=== PATIENT | male | born 2000 | race Hispanic/Latino ===

== ENCOUNTER 2020-03-03 16:19 | Inpatient (IN) | payer SELFPAY ==
[~2020-03-03] VITALS: Ht 180.3 cm; Wt 114.2 kg
[2020-03-03] MEDS ORDERED: SODIUM CHLORIDE 0.9% 1000ML 2,000 ML IV ONE (16:44)
[2020-03-03 16:51] LABS: ABG OXYGEN SATURATION 63.6 % (95.0-99.0); BASE EXCESS,VENOUS BLOOD GAS -17.9 (-2.0-3.0); PCO2,VENOUS BLOOD GAS 26 (35-48); PH,VENOUS BLOOD GAS 7.159 (7.350-7.450)
[2020-03-03 17:11] LABS: APPEARANCE,URINE Clear (CLEAR); BASOPHILS % (AUTO) 0.5 % (0.0-5.0); BILIRUBIN,URINE Negative (NEGATIVE); COLOR,URINE Yellow (YELLOW); EOSINOPHILS % (AUTO) 0.1 % (0.0-8.0); GLUCOSE, URINE (UA) >=1000 mg/dL (NEGATIVE); HEMATOCRIT 50.8 % (42-54); KETONES,URINE >=160 mg/dL (NEGATIVE); LEUKOCYTE ESTERASE ,URINE Negative (NEGATIVE); LYMPHOCYTES % (AUTO) 15.8 % (21.0-51.0); MONOCYTES % (AUTO) 8.1 % (3.0-13.0); NITRATE,URINE Negative (NEGATIVE); OCCULT BLOOD,URINE Moderate (NEGATIVE); PLATELET COUNT (AUTO) 199 K/uL (130-400); PROTEIN,URINE POS 2+ mg/dL (NEGATIVE); RED BLOOD CELL COUNT(AUTO) 6.35 MIL/uL (4.50-6.20); RED CELL DISTRIBUTION WIDTH 13.8 % (11.0-15.5); UROBILINOGEN,URINE 0.2 mg/dL (0.2-1.0); WHITE BLOOD COUNT (AUTO) 11.4 K/uL (4.8-10.8)
[2020-03-03 17:19] LABS: AMPHET/METH SCREEN,URINE NEGATIVE (NEGATIVE); BARBITURATE SCREEN, URINE NEGATIVE (NEGATIVE); BENZODIAZEPINES SCREEN,URINE NEGATIVE (NEGATIVE); CANNABINOID SCREEN,URINE NEGATIVE (NEGATIVE); COCAINE SCREEN,URINE NEGATIVE (NEGATIVE); OPIATE SCREEN,URINE NEGATIVE (NEGATIVE); PHENCYCLIDINE SCREEN,URINE NEGATIVE (NEGATIVE)
[2020-03-03 17:20] LABS: BACTERIA,URINE Rare /HPF (None Seen); MUCUS,URINE Moderate LPF (None Seen); SQUAMOUS EPITHELIAL CELL,UR Few /HPF (0-2)
[2020-03-03 17:25] LABS: INR 0.93 (0.85-1.15); PARTIAL THROMBOPLASTIN TIME 26.7 SEC (26.3-35.5); PROTHROMBIN TIME 10.1 SEC (9.6-11.6)
[2020-03-03 17:41] LABS: ALBUMIN 4.6 g/dL (3.5-5.0); BILIRUBIN,TOTAL 1.1 mg/dL (0.2-1.0); CREATININE 1.4 mg/dL (0.5-1.5); TOTAL PROTEIN, SERUM 8.8 g/dL (6.0-8.3)
[2020-03-03 17:42] LABS: POTASSIUM 2.4 mmol/L (3.5-5.1)
[2020-03-03] MEDS ORDERED: POTASSIUM CHLORIDE 20MEQ/100ML 100 ML IV ONE ×2 (17:59→21:05)
[2020-03-03] MEDS ORDERED: POTASSIUM BICARB/CIT AC 25 MEQ TABLET.EFF ONE ×2 (17:59→21:04)
[2020-03-03] MEDS ORDERED: INSULIN REGULAR, HUMAN 3ML 100 UNIT in SODIUM CHLORIDE 0.9% 99 ML IV PRN ×2 (18:00)
[2020-03-03] MEDS ORDERED: ACETAMINOPHEN 325 MG TAB PO PRN ×2 (18:15)
[2020-03-03] MEDS ORDERED: ONDANSETRON HCL 4 MG/2 ML VIAL IV PRN (18:15)
[2020-03-03] MEDS ORDERED: DEXTROSE 5 %-0.45 % NACL 1,000 ML IV PRN (18:15)
[2020-03-03] MEDS: SODIUM CHLORIDE 0.9% 1000ML 1,000 ML IV SCH ×2 (18:15→23:15)
[2020-03-03] MEDS ORDERED: SODIUM CHLORIDE 0.9% 1000ML 1,000 ML IV SCH (18:15)
[2020-03-03 18:41] LABS: HEMOGLOBIN A1C 11.6 % (4.0-6.0)
[2020-03-03] MEDS ORDERED: LIDOCAINE HCL-MPF 1% 2ML VIAL ONE (20:03)
[2020-03-03] MEDS ORDERED: SODIUM CHLORIDE 0.9% 500ML 500 ML IV ONE (20:34)
[2020-03-03 20:59] LABS: POTASSIUM 2.8 mmol/L (3.5-5.1)
[2020-03-04] VITALS (8 sets, daily range): BP systolic 111–152; BP diastolic 61–85
[2020-03-04] MEDS ORDERED: SODIUM CHLORIDE 0.9% 1000ML 2,000 ML IV ONE (01:10)
[2020-03-04] MEDS ORDERED: SODIUM CHLORIDE 0.9% 500ML 500 ML IV ONE (01:10)
[2020-03-04 01:12] LABS: POTASSIUM 2.5 mmol/L (3.5-5.1)
[2020-03-04] MEDS ORDERED: POTASSIUM CHLORIDE 10MEQ/100ML 200 ML IV ONE ×2 (01:23→01:24)
[2020-03-04] MEDS ORDERED: LIDOCAINE HCL-MPF 1% 2ML VIAL ONE (01:24)
[2020-03-04] MEDS ORDERED: SODIUM CHLORIDE 0.9% 1000ML 1,000 ML IV ONE ×2 (02:06→05:21)
[2020-03-04] MEDS: SODIUM CHLORIDE 0.9% 1000ML 1,000 ML IV SCH ×4 (04:15→19:58)
[2020-03-04 05:24] LABS: HEMATOCRIT 42.2 % (42-54); MEAN CORPUSCULAR HEMOGLOBIN 28.4 pg (27.0-33.0); MEAN CORPUSCULAR HGB CONC 35.3 g/dL (32.0-36.0); MEAN CORPUSCULAR VOLUME 80.4 fL (80-100); RED BLOOD CELL COUNT(AUTO) 5.25 MIL/uL (4.50-6.20); RED CELL DISTRIBUTION WIDTH 13.9 % (11.0-15.5); WHITE BLOOD COUNT (AUTO) 6.8 K/uL (4.8-10.8)
[2020-03-04 06:05] LABS: ALBUMIN 3.5 g/dL (3.5-5.0); BILIRUBIN,TOTAL 0.9 mg/dL (0.2-1.0); CREATININE 0.9 mg/dL (0.5-1.5); TOTAL PROTEIN, SERUM 6.7 g/dL (6.0-8.3)
[2020-03-04 06:25] LABS: POTASSIUM 2.9 mmol/L (3.5-5.1)
[2020-03-04] MEDS ORDERED: POTASSIUM CHLORIDE 10MEQ/100ML 100 ML IV ONE ×3 (07:02→14:37)
[2020-03-04] MEDS ORDERED: POTASSIUM CHLORIDE 20 MEQ ERTAB PO ONE (07:43)
[2020-03-04] MEDS: POTASSIUM CHLORIDE 20 MEQ ERTAB PO SCH ×2 (08:00→23:22)
--- NOTE | 2020-03-04 08:36 | NUR ---
Admission Pt arrived on the unit. A/O, RA 100%, denies pain or discomfort. VS stable. Potassium 1/4 is running, 6L of NS wwas given in ER, ass well as 60meQ of Potassium po prior to arrival. 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
[2020-03-04] MEDS: POTASSIUM CHLORIDE 10MEQ/100ML 100 ML IV PRN ×5 (09:22→18:04)
[2020-03-04 10:05] LABS: CREATININE 0.9 mg/dL (0.5-1.5)
[2020-03-04 10:13] LABS: POTASSIUM 2.6 mmol/L (3.5-5.1)
[2020-03-04 14:04] LABS: CREATININE 0.9 mg/dL (0.5-1.5)
[2020-03-04 14:10] LABS: POTASSIUM 2.5 mmol/L (3.5-5.1)
[2020-03-04] MEDS ORDERED: LIDOCAINE HCL-MPF 1% 2ML VIAL IV PRN (14:30)
[2020-03-04] MEDS ORDERED: PHARMACY COMMUNICATION MISC SCH (14:45)
--- NOTE | 2020-03-04 17:36 | NUR ---
ELISE NOTE/IA UNABLE TO MEET WITH PATIENT IN ROOM. NEXT OF KIN CALLED, JAYLAN GARCIA. PER MOTHER, PATIENT LIVES WITH FAMILY, INDEPENDENT WITH ADLS, HAS WALKER, NO USE OF PROVIDER SERVICES AND FEELS SAFE FOR PATIENT TPO DISCHARGE HOME ONCE MEDICALLY CLEARED. ADDED PHONE NUMBER TO CALL: RO GARCIA, FATHER, . Addendum: 03/04/20 at 1738 by PETE MENDOZA RN CM Amended: Links added.
[2020-03-04 21:09] LABS: CREATININE 0.9 mg/dL (0.5-1.5)
[2020-03-04 21:12] LABS: POTASSIUM 2.4 mmol/L (3.5-5.1)
[2020-03-04] MEDS ORDERED: POTASSIUM CHLORIDE 10% ELIXIR 20 MEQ/15 ML UDCUP ONE (21:23)
[2020-03-04] MEDS: D5W-1/2 NS/20MEQ KCL 1,000 ML IV SCH (23:21)
[2020-03-05] VITALS (27 sets, daily range): BP systolic 104–137; BP diastolic 59–92
[2020-03-05] MEDS: SODIUM CHLORIDE 0.9% 1000ML 1,000 ML IV SCH ×3 (00:15→12:09)
[2020-03-05 01:19] LABS: CREATININE 0.9 mg/dL (0.5-1.5)
[2020-03-05 01:25] LABS: POTASSIUM 2.8 mmol/L (3.5-5.1)
[2020-03-05] MEDS ORDERED: POTASSIUM CHLORIDE 10% ELIXIR 20 MEQ/15 ML UDCUP ONE ×2 (01:50→20:58)
[2020-03-05] MEDS: D5W-1/2 NS/20MEQ KCL 1,000 ML IV SCH ×4 (02:45→17:45)
[2020-03-05 05:35] LABS: CREATININE 0.9 mg/dL (0.5-1.5)
[2020-03-05 05:37] LABS: POTASSIUM 2.9 mmol/L (3.5-5.1)
[2020-03-05] MEDS: LIDOCAINE HCL-MPF 1% 2ML VIAL IV PRN ×3 (05:58→10:42)
[2020-03-05] MEDS: POTASSIUM CHLORIDE 20MEQ/100ML 100 ML IV PRN ×7 (05:58→22:39)
[2020-03-05] MEDS ORDERED: POTASSIUM CHLORIDE 20 MEQ ERTAB PO SCH ×2 (08:45→12:45)
[2020-03-05 10:15] LABS: CREATININE 0.8 mg/dL (0.5-1.5)
[2020-03-05 10:18] LABS: POTASSIUM 2.6 mmol/L (3.5-5.1)
--- NOTE | 2020-03-05 10:45 | NUR ---
Report given to MILES Jones to assume care for the rest of the shift. Dr Yo notified about new consult
[2020-03-05 13:15] LABS: CREATININE 0.8 mg/dL (0.5-1.5)
[2020-03-05 13:28] LABS: POTASSIUM 2.8 mmol/L (3.5-5.1)
[2020-03-05] MEDS ORDERED: PHARMACY COMMUNICATION MISC SCH ×3 (13:30→19:30)
[2020-03-05] MEDS ORDERED: COMPOUND IV REFRIGERATED 1 EACH IVSOLN MISC PRN (13:45)
[2020-03-05] MEDS ORDERED: [UNRECOGNIZED DRUG - CODE] IV SCH ×2 (13:45)
[2020-03-05] MEDS: POTASSIUM CHLORIDE 10MEQ/100ML 100 ML IV PRN ×2 (15:25→16:42)
[2020-03-05 17:00] LABS: CREATININE 0.8 mg/dL (0.5-1.5)
[2020-03-05 17:11] LABS: POTASSIUM 2.6 mmol/L (3.5-5.1)
--- NOTE | 2020-03-05 17:38 | NUR ---
[employer] CALLED TO OBTAIN INFORMATION ABOUT PATIENT CLAIMING PATIENT ONLY ANSWERS TEXT MESSAGES STATING HE IS OK. VERIFIED WITH BROTHER PATIENT IDENTIFIER. UPDATED ON PATIENT STATUS. INFORMED THAT THERAPY TECH LISTED IS PATIENT'S MOTHER. PATIENT ABLE TO UPDATE FAMILY AT THIS TIME.
[2020-03-05] MEDS: [UNRECOGNIZED DRUG - CODE] IV SCH ×2 (18:15)
--- NOTE | 2020-03-05 18:50 | NUR ---
ALGORITHM 3 INITIATED AT THIS TIME, PER DR BILLINGS ORDER TO KEEP BG LOWER THAN 200. PT HAVE RECEIVED A TOTAL OF 180 MEQ OF KCL IV AND PO DURING THE DAY. MONITORING BMP Q4H. MOTHER UPDATED BY PHONE ON PT STATUS AND EDUCATION PROVIDED IN REGARDS TO PERSON TO KEEP INFORMED ABOUT PT STATUS. MOTHER VERBALIZED UNDERSTANDING. MOTHER IS NEPALESE SPEAKING ONLY. PT ENCOURAGED TO KEEP FAMILY UPDATED.
[2020-03-05] MEDS ORDERED: GLUCAGON 1MG KIT 1 MG ML IM PRN (19:45)
[2020-03-05] MEDS ORDERED: DEXTROSE 50%-WATER 50 ML DISP.SYRIN IV PRN (19:45)
[2020-03-05] MEDS ORDERED: INSULIN DRIP 1 UNIT/ML SSIV3 SQ PRN ×2 (19:45)
--- NOTE | 2020-03-05 20:30 | NUR ---
ENDOCRINOLOGY CALLED SAID TO HOLD INSULIN AND D5, LR AND GIVE 60MEQ POTASSIUM ORAL AND 40 MEQ.
[2020-03-05 22:07] LABS: CREATININE 0.8 mg/dL (0.5-1.5); POTASSIUM 3.4 mmol/L (3.5-5.1)
[2020-03-05] MEDS ORDERED: DEXTROSE 5%-LACTATED RINGERS 1,000 ML IV ONE (23:15)
[2020-03-06] VITALS (24 sets, daily range): BP systolic 107–149; BP diastolic 58–92
[2020-03-06] MEDS: [UNRECOGNIZED DRUG - CODE] IV SCH ×4 (01:03→10:11)
[2020-03-06 01:35] LABS: CREATININE 0.8 mg/dL (0.5-1.5)
[2020-03-06 01:39] LABS: POTASSIUM 2.7 mmol/L (3.5-5.1)
[2020-03-06] MEDS ORDERED: INSULIN LISPRO 100 UNIT/ML 3ML SQ SCH ×2 (02:15→20:40)
[2020-03-06] MEDS: POTASSIUM CHLORIDE 20MEQ/100ML 100 ML IV PRN ×6 (03:50→16:39)
[2020-03-06 05:17] LABS: BASOPHILS % (AUTO) 0.8 % (0.0-5.0); EOSINOPHILS % (AUTO) 1.4 % (0.0-8.0); HEMATOCRIT 45.2 % (42-54); LYMPHOCYTES % (AUTO) 33.4 % (21.0-51.0); MEAN CORPUSCULAR HEMOGLOBIN 28.2 pg (27.0-33.0); MEAN CORPUSCULAR HGB CONC 35.8 g/dL (32.0-36.0); MEAN CORPUSCULAR VOLUME 78.7 fL (80-100); MONOCYTES % (AUTO) 11.8 % (3.0-13.0); NEUTROPHILS % (AUTO) 51.2 % (40.0-77.0); PLATELET COUNT (AUTO) 168 K/uL (130-400); RED BLOOD CELL COUNT(AUTO) 5.74 MIL/uL (4.50-6.20); WHITE BLOOD COUNT (AUTO) 6.3 K/uL (4.8-10.8)
[2020-03-06] MEDS ORDERED: POTASSIUM CHLORIDE 20MEQ/100ML 100 ML IV ONE (05:21)
[2020-03-06 06:01] LABS: ALBUMIN 3.9 g/dL (3.5-5.0); BILIRUBIN,TOTAL 1.4 mg/dL (0.2-1.0); CREATININE 0.7 mg/dL (0.5-1.5); MAGNESIUM 1.8 mg/dL (1.80-2.40); POTASSIUM 3.3 mmol/L (3.5-5.1); TOTAL PROTEIN, SERUM 7.3 g/dL (6.0-8.3)
[2020-03-06 09:21] LABS: CREATININE 0.8 mg/dL (0.5-1.5)
[2020-03-06 09:36] LABS: POTASSIUM 2.5 mmol/L (3.5-5.1)
[2020-03-06] MEDS ORDERED: LACTATED RINGERS IV SCH (12:45)
[2020-03-06] MEDS ORDERED: POTASSIUM CHLORIDE 20 MEQ ERTAB PO SCH (12:45)
[2020-03-06] MEDS ORDERED: POTASSIUM CHLORIDE IV SCH (12:45)
[2020-03-06] MEDS: LIDOCAINE HCL-MPF 1% 2ML VIAL IV PRN (12:58)
[2020-03-06] MEDS ORDERED: POTASSIUM CHLORIDE 20 MEQ ERTAB PO ONE (13:01)
[2020-03-06 13:07] LABS: CREATININE 0.8 mg/dL (0.5-1.5); POTASSIUM 3.1 mmol/L (3.5-5.1)
--- NOTE | 2020-03-06 15:11 | NUR ---
RD NOTIFICATION Pt admitted with Hypokalemia. Currently in DKA state. NPO with DKA protocol. LBM 03/04/20. Obesity Class I-II. Monitored labs: Na 131, K 3.1, Cl 98, CO2 20, BUN 2, BG 216. Serum potassium replacement therapy in place. Recommend advance to 60gm CC diet order when stabilized Once diet advanced, Recommend increased hydration RD to follow up with Nutrition Education RD to continue to monitor. Please notify as additional nutrition concerns arise. Thank you.
[2020-03-06] MEDS ORDERED: INSULIN GLARGINE 100 UNITS/ML 10 ML VIAL SQ ONE ×2 (15:15→16:20)
[2020-03-06] MEDS: INSULIN LISPRO 100 UNIT/ML 3ML SQ SCH ×2 (16:42→21:07)
[2020-03-06 17:34] LABS: CREATININE 0.8 mg/dL (0.5-1.5); POTASSIUM 3.3 mmol/L (3.5-5.1)
--- NOTE | 2020-03-06 19:20 | NUR ---
Received report patient is off IVF and Insulin and already fed with Diabetic diet.Potassium of 3.3 was covered with K20 meq IV.DKA poroitocol was already stopped.
[2020-03-07] VITALS (18 sets, daily range): BP systolic 121–140; BP diastolic 65–91
[2020-03-07 03:45] LABS: BASOPHILS % (AUTO) 0.8 % (0.0-5.0); EOSINOPHILS % (AUTO) 1.7 % (0.0-8.0); HEMATOCRIT 47.5 % (42-54); LYMPHOCYTES % (AUTO) 38.8 % (21.0-51.0); MEAN CORPUSCULAR HEMOGLOBIN 28.6 pg (27.0-33.0); MEAN CORPUSCULAR HGB CONC 36.2 g/dL (32.0-36.0); NEUTROPHILS % (AUTO) 42.9 % (40.0-77.0); PLATELET COUNT (AUTO) 182 K/uL (130-400); RED BLOOD CELL COUNT(AUTO) 6.01 MIL/uL (4.50-6.20); RED CELL DISTRIBUTION WIDTH 14.6 % (11.0-15.5); WHITE BLOOD COUNT (AUTO) 7.2 K/uL (4.8-10.8)
[2020-03-07 04:15] LABS: BILIRUBIN,TOTAL 1.5 mg/dL (0.2-1.0); CREATININE 0.9 mg/dL (0.5-1.5); TOTAL PROTEIN, SERUM 7.6 g/dL (6.0-8.3)
[2020-03-07 04:19] LABS: POTASSIUM 2.5 mmol/L (3.5-5.1)
[2020-03-07] MEDS: POTASSIUM CHLORIDE 20MEQ/100ML 100 ML IV PRN ×2 (05:10→18:56)
[2020-03-07] MEDS ORDERED: LIDOCAINE HCL-MPF 1% 2ML VIAL IV PRN (05:15)
[2020-03-07] MEDS ORDERED: POTASSIUM CHLORIDE 20MEQ/100ML 100 ML IV PRN (05:15)
[2020-03-07] MEDS ORDERED: POTASSIUM CHLORIDE 10% ELIXIR 20 MEQ/15 ML UDCUP PO PRN (05:15)
[2020-03-07] MEDS: INSULIN LISPRO 100 UNIT/ML 3ML SQ SCH ×7 (05:45→21:12)
[2020-03-07] MEDS ORDERED: INSULIN GLARGINE 100 UNITS/ML 10 ML VIAL SQ SCH ×2 (07:30→09:00)
[2020-03-07] MEDS ORDERED: INSULIN LISPRO 100 UNIT/ML 3ML SQ SCH (08:00)
[2020-03-07] MEDS: POTASSIUM CHLORIDE 20 MEQ ERTAB PO PRN ×6 (08:07→21:13)
--- NOTE | 2020-03-07 15:02 | NUR ---
Report given to Nurse Ly on 3rd floor. Pt going to room 302.
--- NOTE | 2020-03-07 16:00 | NUR ---
RECEIVED PT A TRANSFER FROM DAY SURGERY, I HAVE ORIENTED HIM TO ROOM AND CALL LIGHT SYSTEM AND HE STATES UNDERSTANDING; HIS ONLY QUESTIONS ARE ABOUT WHEN HE'S GOING TO BE DISCHARGED; I STATED WE HAVE TO CORRECT HIS ELECTROLYTE LEVELS BEFORE WE TALK ABOUT DISCHARGING HIM.
--- NOTE | 2020-03-07 16:02 | NUR ---
Notifed Nurse Leanne about potassium level from 2.5 to 3.0. Nurse stated she'll continue with coverage.
[2020-03-07] MEDS ORDERED: SODIUM CHLORIDE 0.9% 500ML 500 ML IV ONE (18:48)
[2020-03-07] MEDS: LIDOCAINE HCL-MPF 1% 2ML VIAL IV PRN (18:57)
--- NOTE | 2020-03-07 21:15 | NUR ---
Re: Insulin administration teaching Teaching regarding how to use the sliding scale depending on current blood sugar reading showed to pt with how to read the insulin syringe & withdraw the right coverage for tonight's done with return demonstration. Noted pt can do this without problem. He mention that his father uses the pen to give himself the insulin, which I told him depending on what type of prescription he will get on d/c. I made him aware the pen is much easier to manage but more expensive than the vials. Per pt stated he is confident he can manage to do it himself.
[2020-03-08] VITALS: BP 126/93
[2020-03-08] MEDS: POTASSIUM CHLORIDE 20 MEQ ERTAB PO PRN ×4 (00:22→11:57)
[2020-03-08 04:00] VITALS: BP 121/82
[2020-03-08] MEDS: INSULIN LISPRO 100 UNIT/ML 3ML SQ SCH ×4 (05:59→11:59)
[2020-03-08 06:01] LABS: BASOPHILS % (AUTO) 0.6 % (0.0-5.0); EOSINOPHILS % (AUTO) 1.3 % (0.0-8.0); HEMATOCRIT 44.6 % (42-54); MEAN CORPUSCULAR HEMOGLOBIN 28.1 pg (27.0-33.0); MEAN CORPUSCULAR VOLUME 80.4 fL (80-100); MONOCYTES % (AUTO) 13.3 % (3.0-13.0); NEUTROPHILS % (AUTO) 46.3 % (40.0-77.0); NUCLEATED RED BLOOD CELLS 0.2 % (0.0-0.19); PLATELET COUNT (AUTO) 179 K/uL (130-400); RED BLOOD CELL COUNT(AUTO) 5.55 MIL/uL (4.50-6.20); RED CELL DISTRIBUTION WIDTH 14.3 % (11.0-15.5); WHITE BLOOD COUNT (AUTO) 8.7 K/uL (4.8-10.8)
[2020-03-08 06:48] LABS: ALBUMIN 3.7 g/dL (3.5-5.0); CREATININE 0.9 mg/dL (0.5-1.5); POTASSIUM 3.1 mmol/L (3.5-5.1)
[2020-03-08 07:19] LABS: HEPATITIS A ANTIBODY IGM Negative (Negative); HEPATITIS B CORE IGM Negative (Negative); HEPATITIS Bs ANTIGEN SCREEN P Negative (Negative)
[2020-03-08] MEDS ORDERED: INSULIN GLARGINE 100 UNITS/ML 10 ML VIAL SQ SCH (07:30)
[2020-03-08 08:00] VITALS: BP 123/73
[2020-03-08 11:00] VITALS: BP 145/88
--- NOTE | 2020-03-08 12:22 | NUR ---
pt is stating he is going to leave [facility]--i have called dr tan and gotten his recomendations on diabetic meds and called rinku carrillo and informed her of recomendations and fact that pt wants to leave [facility].
[2020-03-08] MEDS ORDERED: METF-446 PO (12:38)
[2020-03-08] MEDS ORDERED: INSLAN SQ (12:38)
[2020-03-08] MEDS ORDERED: INSU100C6 SQ (12:38)
--- NOTE | 2020-03-08 13:40 | NUR ---
i spoke to dr enriquez about changing pt from bipap to cpap at night and he stated no to keep her on the bipap
--- NOTE | 2020-03-08 14:28 | NUR ---
CM NOTE/SELF PAY PACKET MEET WITH PATIENT IN ROOM. GIVEN SELF PAY PACKETS AND GOOD RX WELL. PATIENT VERBALIZED UNDERSTANDING. PATIENT TO DC HOME TODAY PER [facility].
--- NOTE | 2020-03-08 14:49 | NUR ---
PT STATED UNDERSTANDING OF ALL D/C INSTRUCTIONS ON DIABETES AND NEW INSULIN ADMINISTRATION; PT HAS ALREADY BEEN DRAWING UP AND INJECTING HIMSELF HER AT THE HOSPITAL. IV ACCESS HAVE BEEN REMOVED.
== END 2020-03-08 15:15 | disposition home or self-care (01) | DRG 638 ==
LOC: EDH 16:19 → EDHIP 16:20 → DAHIP 03-04 08:05 → 3AH 03-07 16:00
PROVIDERS: ADMIT Internal Medicine; ATTEND Internal Medicine
DX: E11.10 Type 2 diabetes mellitus with ketoacidosis without coma (principal); E87.1 Hypo-osmolality and hyponatremia; E87.6 Hypokalemia; L83 Acanthosis nigricans; E86.1 Hypovolemia; E86.0 Dehydration; E78.5 Hyperlipidemia, unspecified; R74.8 Abnormal levels of other serum enzymes; R63.4 Abnormal weight loss; E66.9 Obesity, unspecified; Z83.3 Family history of diabetes mellitus; Z68.35 Body mass index [BMI] 35.0-35.9, adult; Z79.899 Other long term (current) drug therapy
CPT/HCPCS: 36415; 36600; 71045; 74150; 76705; 80048; 80053; 80061; 80074; 80305; 81001; 82010; 82150; 82435; 82550; 82803; 82947; 82948; 83036; 83605; 83690; 83735; 84100; 84132; 84295; 84478; 84484; 85025; 85027; 85610; 85730; 87040; 93005; 99291; G0378; J1815; J3480; J3490; J7030; J7040; J7042; J7120